=== PATIENT | male | born 1955 | race Caucasian/White ===

== ENCOUNTER 2016-12-27 15:48 | Inpatient (IN) | payer MEDICARE, OTHER ==
[~2016-12-27] VITALS: Ht 180.3 cm; Wt 90.5 kg
[~2016-12-27 15:48] MED LIST: CARBATROL200 MG PO; ECOTRIN81 MG PO; ELAVIL 25 MG TA25 MG PO; HYDROCHLOROTH12.5 MG PO; K-DUR TAB 10 M10 MEQ PO; LOTREL 5-40 MG1 EACH PO; MICROZIDE12.5 MG PO; MOBIC15 MG PO; NEXIUM40 MG PO; NIFEREX 150 MG150 MG PO; PRAVACHOL40 MG PO; VITAMIN D50000 UNIT PO
[2016-12-27 16:33] LABS: HEMOGLOBIN 10.3 gm/dl (14.0-17.5); RED BLOOD COUNT 3.95 M/UL (4.20-5.50); WHITE BLOOD COUNT 7.1 K/UL (4.5-11.0)
[2016-12-27 16:52] LABS: BUN/CREATININE RATIO 20 (0-10)
[2016-12-27] MEDS ORDERED: VIT B12 IM (20:50)
[2016-12-28 06:18] LABS: HEMOGLOBIN 9.5 gm/dl (14.0-17.5); RED BLOOD COUNT 3.66 M/UL (4.20-5.50); WHITE BLOOD COUNT 7.9 K/UL (4.5-11.0)
[2016-12-28 06:34] LABS: BUN/CREATININE RATIO 18 (0-10)
[2016-12-29 04:15] LABS: HEMOGLOBIN 8.2 gm/dl (14.0-17.5); WHITE BLOOD COUNT 6.8 K/UL (4.5-11.0)
[2016-12-29 04:16] LABS: RED BLOOD COUNT 3.15 M/UL (4.20-5.50)
[2016-12-29 04:43] LABS: BUN/CREATININE RATIO 14 (0-10)
[2016-12-30 06:04] LABS: HEMOGLOBIN 8.8 gm/dl (14.0-17.5); RED BLOOD COUNT 3.36 M/UL (4.20-5.50)
[2016-12-30 06:22] LABS: BUN/CREATININE RATIO 18 (0-10)
[2016-12-30] MEDS ORDERED: NORCO 10-325 T1 EACH PO (11:23)
[2016-12-30] MEDS ORDERED: COLACE 100MG C100 MG PO (11:23)
[2016-12-30] MEDS ORDERED: LOVENOX SY30 MG/0.3 SQ (11:23)
--- NOTE | 2016-12-30 14:53 | NUR ---
12/30/16 @ 1245: SPOKE WITH JOHN (PATIENT POA). 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 STATED THAT SHE WOULD BE OUT OF TOWN THIS EVENING. KALYAN TOLD THAT NURSE WOULD CALL DR. ESCAMILLA TO MAKE HIM AWARE. KALYAN WANTED NURSE TO CALL HER CELL PHONE WHEN FOUDN SOMETHING OUT. 12/30/16 1255: SPOKE WITH DR. ESCAMILLA VIA TELEPHONE. DR. ESCAMILLA STATED OKAY TO MISS EVENING DOSE OF LOVENOX AND RESUME THE Q 12 HOURS SCHEDULE IN AM. RB AND Jama. 12/30/16 1310: NOTIFIED KENDRA BIGGS, THAT PATIENT COULD RESUME Q 12 HOUR SCHEDULE IN AM. HOME [facility] TO DO MORNING INJECTION AND SHE COULD DO EVENING INJECTION. KALYAN THEN STATED SHE WOULD BE OUT OF TOWN UNTIL TUESDAY. 12/30/16 1400: SPOKE WITH FROM [facility] WHO STATED THAT PATIENT COULD NOT RETURN ON INJECTIONS. STATED THAT NO ONE AT [facility] COULD GIVE THEM TO PATIENT. STATED IT WAS AGAINST POLICY. 12/30/16 1410: SPOKE WITH DR. ESCAMILLA VIA TELEPHONE WHO STATED THAT HE WOULD NOT CHANGE CURRENT ORDER FOR LOVENOX 30MG SUBQ Q 12 HOURS. STATED THIS WAS CURRENT GUIDELINE. STATED COULD CALL HOSPITALIST FOR FURTHER INSTRUCTIONS. 12/30/16 1415: SPOKE WITH DR. WHITMORE VIA TELEPHONE NEW ORDER NOTED TO STOP DISCHARGE AND CONSULT RAIL ASSEMBLER FOR POSSIBLE PLACEMENT. JUAN PABLO AND Jama
[2016-12-31 06:04] LABS: HEMOGLOBIN 9.3 gm/dl (14.0-17.5); RED BLOOD COUNT 3.54 M/UL (4.20-5.50)
[2016-12-31 06:10] LABS: WHITE BLOOD COUNT 10.1 K/UL (4.5-11.0)
[2016-12-31 06:25] LABS: BUN/CREATININE RATIO 19 (0-10)
== END 2016-12-31 15:03 | disposition home or self-care (01) | DRG 494 ==
LOC: ER1 15:48 → ZEROF 17:12 → M/S 17:12
PROVIDERS: Internal Medicine; Orthopaedic Surgery; Physician Assistant; ADMIT Family Medicine
PROC: 0QSH06Z Reposition Left Tibia with Intramedullary Internal Fixation Device, Open Approach (ICD-10-PCS; principal; 2016-12-28 15:30)
DX: S82.302A Unspecified fracture of lower end of left tibia, initial encounter for closed fracture (principal); S82.832A Other fracture of upper and lower end of left fibula, initial encounter for closed fracture; W01.0XXA Fall on same level from slipping, tripping and stumbling without subsequent striking against object, initial encounter; Y93.9 Activity, unspecified; Y92.197 Garden or yard of other specified residential institution as the place of occurrence of the external cause; D50.9 Iron deficiency anemia, unspecified; I10 Essential (primary) hypertension; G40.909 Epilepsy, unspecified, not intractable, without status epilepticus; R62.50 Unspecified lack of expected normal physiological development in childhood; K21.9 Gastro-esophageal reflux disease without esophagitis; E53.8 Deficiency of other specified B group vitamins; E55.9 Vitamin D deficiency, unspecified; Z82.49 Family history of ischemic heart disease and other diseases of the circulatory system; Z83.3 Family history of diabetes mellitus; Z79.82 Long term (current) use of aspirin; Z79.899 Other long term (current) drug therapy
CPT/HCPCS: 29505; 36415; 71010; 73560; 73590; 73600; 76000; 80048; 80053; 85025; 85027; 85610; 93005; 96374; 96375; 97110; 97116; 97530; 99285; C1713; J0690; J1650; J1756; J2250; J2270; J2405; J2795; J3010; J7030; J7050; J7120

== ENCOUNTER → 2021-12-01 | Day surgery (SDC) | payer MEDICARE, OTHER ==
[~2021-12-01] MED LIST changes: +AUGMENTIN 875-1 EACH PO; +BUSPIRONE HCL5 MG PO; +COLACE 100MG C100 MG PO; +DEXILANT60 MG PO; +KLOR-CON 1010 MEQ PO; +LOVENOX SY30 MG/0.3 SQ; +NORCO 10-325 T1 EACH PO; +NORVASC5 MG PO; +VIT B12 IM; +VITAMIN D31250 MCG PO
== END | disposition home or self-care (01) ==
LOC: OR 07:30
DX: Z12.11 Encounter for screening for malignant neoplasm of colon (principal); D12.0 Benign neoplasm of cecum; K64.8 Other hemorrhoids; K64.4 Residual hemorrhoidal skin tags; E66.3 Overweight; I10 Essential (primary) hypertension; M19.90 Unspecified osteoarthritis, unspecified site; G40.409 Other generalized epilepsy and epileptic syndromes, not intractable, without status epilepticus; E78.00 Pure hypercholesterolemia, unspecified; K21.9 Gastro-esophageal reflux disease without esophagitis; Z86.010 Personal history of colon polyps; Z20.822 Contact with and (suspected) exposure to COVID-19
CPT/HCPCS: J7040